=== PATIENT | male | born 1955 | race Caucasian/White ===

== ENCOUNTER 2025-05-26 13:43 | Emergency (ER) | payer OTHER, SELFPAY ==
--- OUTSIDE RECORDS SUMMARY | 2025-05-26 13:45 | XMS_ITS | Encounter Summary ---
Author Organization [facility] Address [address] [address] Care Team Providers Care Cutlet Maker Pork Name Role Phone Kurtis Contreras MD Primary Care Provider Kiana Barry Primary Care Provider Felix Hopson Primary Care Provider [phone] Encounter Details Date Type Department Care Team (Late Contact Info) Description 06/25/2018 Scanned Document SCANNED ONLY Scanned, Document Social History Tobacco Use Types Packs/Day Years Used Date Smoking Tobacco: Former Smokeless Tobacco: Never Alcohol Use Standard Drinks/Week Comments Yes 0 (1 standard drink = 0.6 oz pur e alcohol) 1-2 glasses of wine daily Sex and Gender Information Value Date Recorded Sex Assigned at Not on file Legal Sex Male 9:45 AM PDT Gender Identity Not on file Sexual Orientation Not on file documented as of this encounter Plan of Treatment Upcoming Encounters Date Type Department Care Team (Late Contact Info) Description 07/28/2025 10:40 AM PST Follow-Up CARDIOLOGY - [place], [place] [address] [place] [phone] Bret Dempsey MD [address] [facility] [address] [id number] documented as of this encounter Visit Diagnoses Not on filedocumented in this encounter Care Teams Cutlet Maker Pork Relationship Specialty Start Date End Date Kurtis Contreras MD PCP - General Family Medicine 01/01/18 04/14/22 Kiana Barry ARNP PCP - General Nurse Practitioner 04/15/22 01/25/25 Felix Reed PA [address] [place] [address] PCP - General Physician Termite Treater Helper 01/26/25 documented as of this encounter
[2025-05-26 14:54] VITALS: BP 115/66; PULSE 80; RESP 16; TEMP 37.2; O2SAT 97; BMI 28.1
--- NOTE | 2025-05-26 14:58 | DI.RAD.S_ITS ---
PROCEDURE: XR SHOULDER RT MIN 2V INDICATIONS: pain after heavy lifting. TECHNIQUE: 4 views of the shoulder were acquired. COMPARISON: None. FINDINGS: Severe degenerative changes of the glenohumeral joint with [id number] joint space narrowing. Severe acromioclavicular degenerative changes. Chronic rotator cuff tear with high-riding humeral head and subacromial spurring. No acute fracture or dislocation. IMPRESSION: As above Dictated by: Vidal Hernandez M.D. on 05/26/2025 at 15:52 Approved by: Vidal Hernandez M.D. on 05/26/2025 at 15:54
--- NOTE | 2025-05-26 18:54 | ED.GENADULT ---
HPI - General Adult General Chief complaint: Extremity Injury, Upper Stated complaint: injured R shoulder yesterday, pain not improving Time Seen by Provider: 05/26/25 18:54 Source: patient Mode of arrival: Ambulatory History of Present Illness HPI narrative: 69-year-old gentleman with a history of congestive heart failure on Plavix, BPH, hyperlipidemia, diabetes and chronic right shoulder pain. About a week ago is doing some heavy lifting moving Timbers and a 300 lb glass window and then yesterday was moving some gravel to get to some cates for [place] and significantly exacerbated his right shoulder pain. He describes this is some of the worst pain that he has ever experienced. He had trouble sleeping last night. Currently has a sling but not sure that it is particularly helpful. Pain is decreasing overall but still significant. No fevers, chills, chest pain, orthopnea, dyspnea. Related Data Previous Rx's ?Medication ?Instructions ?Recorded finasteride 5 mg tablet 5 mg PO QDAY #90 tabs 08/11/16 Allergies Allergy/AdvReac Type Severity Reaction Status Date / Time No Known Drug Allergies Allergy Verified 05/26/25 14:55 Review of Systems Review of Systems Narrative: Pertinent positive and negative findings as per HPI Patient History Medical History (Updated 05/26/25 @ 19:18 by Keya Plaza MD) Mixed hyperlipidemia (09/05/04) Coronary artery disease Congestive heart failure Essential hypertension (10/23/15) Surgical History Status post hernia repair Family History Father Heart disease Hypertension High cholesterol Stroke Social History Smoking Status: Former smoker Smoking Status: Former smoker Alcohol type: wine Exam Initial Vital Signs Initial Vital Signs: Vital Signs Temperature 99 F 05/26/25 14:54 Pulse Rate 80 05/26/25 14:54 Respiratory Rate 16 05/26/25 14:54 Blood Pressure 115/66 05/26/25 14:54 Pulse Oximetry 97 05/26/25 14:54 Oxygen Delivery Method Room Air 05/26/25 14:54 General: Alert appropriate in no acute distress Respiratory: Able to speak in full sentences, no obvious respiratory distress Skin: No obvious rashes, warm and dry Neurologic: Grossly intact no obvious asymmetries or abnormalities Psych: appropriate insight and affect, cooperative Musculoskeletal: Right shoulder is tender with some anterior fullness. No obvious redness no suggestion of infection. Neurovascularly intact. He has minimal tenderness with passive internal and external range of motion. A bit more tenderness with abduction. Course Orders Ordered: ED Orders 05/26/25 14:58 XR shoulder RT 2+ views Stat Vital Signs Vital signs: Vital Signs - 8 hr 05/26/25 14:54 Temperature 99 F Pulse Rate 80 Respiratory Rate 16 Blood Pressure 115/66 Pulse Oximetry 97 Oxygen Delivery Method Room Air Medical Decision Making MDM Narrative Medical decision making narrative: 69-year-old gentleman with long cardiac history and long history of acute right shoulder pain 3 years ago reportedly was suggested that a shoulder replacement would probably be helpful for him. He had a moderate injury about a week ago and re-injured it again last night was simply pulling twisting and turning. Severe pain and comes in for further evaluation. There was no chest pain no shortness a breath no signs of infection or septic arthritis. X-rays show severe osteoarthritis without any fractures. It looks like he does have a chronic rotator cuff tear. He is currently wearing a sling from home and does find that is somewhat helpful. After a recent heart attack he has taken no pain medications at all. I suggested that Tylenol and Percocet could actually mixed with his current medications. I did agree with the avoiding nonsteroidals. 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 In the meantime I have given him for Percocet to use each night for the next 4 days if he chooses to help with the pain so that he has at least able to get some sleep. I also recommended Tylenol to help with pain during the day. Similarly recommended orthopedic follow up to talk about options for management of his chronic pain and possibility of a joint replacement surgery. There was no indication for additional imaging or hospitalization he is safely discharge Discharge Plan Departure Patient Disposition: Home Clinical Impression: Muscle strain of right shoulder, Rotator cuff tear, Localized osteoarthritis of right shoulder Instructions: DI for Shoulder Pain Activity Restrictions/Additional Instructions: Thank you for coming in today I am sorry that you have exacerbated the chronic pain in your right shoulder. The description of moving things a week ago and then re-injuring again yesterday makes perfect sense. The fact that you are beginning to improve already is also quite reassuring. The x-rays do not show any fractures. They do show fairly significant osteoarthritis and likely a chronic right rotator cuff tear as well. Using the sling to help with pain, ice to help with swelling is all appropriate. With all of your medications and heart history Tylenol for a brief period of time is safe for pain control. I have given you for tablets of Percocet which includes Tylenol plus oxycodone which is a narcotic, again okay to mix with your current heart medications. You may find that this helps you sleep at night and sleeping is what is going to get you to healing faster. I would recommend that you follow up with your orthopedic surgeon. The suggestion to have your shoulder replaced 3 years ago we will likely still stand. If you find that you are getting worse or develop any new symptoms, please feel free to return to the emergency department for further evaluation. Prescriptions: No Action finasteride 5 MG tablet 5 mg PO QDAY Qty: 90 3RF Stand Alone Forms: Patient Portal/API
--- NOTE | 2025-05-26 19:28 | PC.NURSE ---
pt in eager for d/c, lives on [address], declined repeat v/s
== END 2025-05-26 19:29 | disposition home or self-care (01) ==
PROVIDERS: Emergency Provider Emergency Medicine
DX: S46.011A Strain of muscle(s) and tendon(s) of the rotator cuff of right shoulder, initial encounter (principal); S46.911A Strain of unspecified muscle, fascia and tendon at shoulder and upper arm level, right arm, initial encounter; M19.011 Primary osteoarthritis, right shoulder; X50.3XXA Overexertion from repetitive movements, initial encounter
CPT/HCPCS: 73030; 99281; 99283